=== PATIENT | female | born 1990 | race Caucasian/White ===

== ENCOUNTER 2017-10-23 19:27 | Emergency (ER) | payer BC, MEDICAID ==
[2017-10-23] MEDS ORDERED: IV NS 0.9% 1,000 ML BAG IV ONE (20:00)
== END 2017-10-23 21:32 | disposition home or self-care (01) ==
DX: R56.9 Unspecified convulsions (principal); F11.10 Opioid abuse, uncomplicated

== ENCOUNTER 2020-02-21 20:49 | Emergency (ER) | payer MEDICAID ==
[~2020-02-21] VITALS: Ht 157.5 cm; Wt 52.2 kg
[2020-02-21 22:18] VITALS: BP 112/67
--- NOTE | 2020-02-21 22:34 | NUR ---
PATIENT CAME TO ER C/O RIGHT AXILLARY ABSCESS WITH PURULENT WHITE DRAINAGE. PATIENT STATES THAT IT HURTS TO SLEEP AND PAIN IS RELIEVED WHEN SHE MOVES HER ARMS AWAY FROM HER BODY. AAOX4. NO SOB. BREATHING EVENLY AND UNLABORED ON ROOM AIR.
[2020-02-21] MEDS ORDERED: ONDANSETRON 4 MG TAB.RAPDIS SL ONE (23:00)
[2020-02-21] MEDS ORDERED: SULFAMETH/TRIMETH 800/160 MG 1 UDTAB TABLET PO ONE (23:00)
[2020-02-21] MEDS ORDERED: CEFTRIAXONE 1 G VIAL IM ONE (23:00)
[2020-02-21] MEDS ORDERED: HYDROCODONE/APAP 5/325MG TABLET PO ONE (23:00)
[2020-02-21] MEDS ORDERED: CEFTRIAXONE 1 G VIAL ONE ×2 (23:18→23:50)
[2020-02-21] MEDS ORDERED: HYDROCODONE/APAP 5/325MG TABLET ONE ×2 (23:18→23:50)
[2020-02-21] MEDS ORDERED: SULFAMETH/TRIMETH 800/160 MG 1 UDTAB TABLET ONE ×2 (23:18→23:51)
[2020-02-21] MEDS ORDERED: ONDANSETRON 4 MG TAB.RAPDIS ONE ×2 (23:19→23:51)
[2020-02-21] MEDS ORDERED: LIDOCAINE /MPF 1% VIAL 5 ML VIAL ONE ×2 (23:22→23:49)
--- NOTE | 2020-02-22 00:23 | NUR ---
Patient discharged to home in stable condition. Written and verbal after care instructions given. Patient verbalizes understanding of instruction.
== END 2020-02-22 00:43 | disposition home or self-care (01) ==
LOC: ER 20:54
DX: L73.2 Hidradenitis suppurativa (principal)
CPT/HCPCS: 96372; 99284; J0696; J3490; Q0162